=== PATIENT | female | born 1990 | race Caucasian/White ===

== ENCOUNTER 2023-10-22 08:16 | Day surgery (SDC) | payer OTHER, SELFPAY ==
[2023-10-15 12:03] VITALS: BMI 28.8
--- NOTE | 2023-10-22 | PATH_ITS ---
[facility] Accession Number: [id number] No. of containers..01 Tissue . 01 Material submitted: . inguinal area - RIGHT INGUINAL SOFT TISSUE MASS . 01 Diagnosis: SOFT TISSUE, RIGHT INGUINAL REGION, EXCISION: Mature adipose tissue, consistent with lipoma. MRV 10/25/2023 1421 Local . 01 Electronically signed: . Abi Henry MD, Pathologist NPI- [id number] . 01 Gross description: . Received in formalin, labeled with two identifiers and right inguinal soft tissue mass, is a partially encapsulated yellow lobulated soft tissue fragment measuring 3.6 x 3.4 x 1.2 cm. Inked blue and sectioned to reveal a yellow, soft, unremarkable cut surface with no cysts or lesions identified. Template Maker sections are submitted in cassette A1. ([id number]) /[facility] 10/23/2023 1656 Local . 01 Pathologist provided ICD-10: D17.9 . 01 CPT . 958693 Specimen Comment: A courtesy copy of this report has been sent to [facility] Performed at: [address] [address], [place], [place] [id number] MD Woo Davis MD Phone: [phone]
[2023-10-22] MEDS: LACTATED RINGERS 1,000 ML 42 ML IV (08:44)
[2023-10-22 08:47] VITALS: BP 102/69; PULSE 64; RESP 16; TEMP 36.2; O2SAT 99; BMI 28.7
--- NOTE | 2023-10-22 09:15 | PM.PREOP ---
Pre-operative Note Interval Note History & Physical reviewed/Exam performed by Physician: Yes Changes to H&P: No H&P completed within 30 days and has changed as indicated here:: 09/22/23 ASA Class (for procedural sedation): II
--- NOTE | 2023-10-22 09:29 | SUR.OPER ---
Lithotomy on padded OR bed, head on pillow, arms secured on padded arm boards at <90 degrees abduction. Legs secured in padded yellow fins stirrups.
[2023-10-22] MEDS: BUPIVACAINE 0.25% W/ EPI (PF) 10 ML VIAL 20 ML INJ (10:07)
--- NOTE | 2023-10-22 10:41 | PM.OP.1 ---
Operative Date/Time/Diagnoses Date of procedure: 10/22/23 Time of procedure: 10:41 Pre-op diagnosis: inguinal soft tissue mass vs labial cyst Post-op diagnosis: same Procedure & Clinicians Procedure: exam under anesthesia, wide local excision of R inguinal soft tissue mass Same procedure as scheduled: Yes Indications: symptomatic R inguinal soft tissue mass Surgeon: Bette Pete Corporate Security Manager: Junito Lackey Click Yes if Unassisted: No Anesthesia Type: General Operative Notes Findings: 5x7cm pedunculated R inguinal tissue mass without appreciable vascularity, contents thereof consistent with lipoma Closure Type: primary Specimen(s): other (soft tissue mass ) Estimated Blood Loss (mL): 5 Blood products transfused: none Procedure in detail: Pt was taken to the operating room, transferred to OR table and anesthesia was induced with placement of LMA.? Pt had her legs placed in Tomas stirrups and an exam under anesthesia was performed. The patient was prepped and draped in a sterile fashion.? A time out was performed.? The soft tissue mass was elevated at the stalk and marked in elliptical fashion along the base for planned area of excision. The surrounding dermis was superficially infiltrated with 5cc of 0.25% lidocaine with epinephrine. The skin of the apex of the mass was sharply incised using the #15 blade. The epidermis was grasped bilaterally using allis clamps and the underlying encapsulated soft tissue mass was sharply dissected away from the underlying tissue using metzenbaum scissors. The mass was excised at the base using bovie cautery, visual impression consistent with lipoma. The excess skin was trimmed to the level of the pre-marked incision. The subdermal layer of the incision was reapproximated using 3-0 vicryl. The skin of the incision was reapproximated in a subcuticular fashion using 4-0 monocryl followed by application of dermabond. Hemostasis was noted to be excellent. An additional 10cc of local anesthetic was injected superficially for further postoperative anesthesia. All counts were correct x2. The patient had her legs taken out of stirrups and was extubated and transferred to PACU in stable condition. Assistance of Dr. Lackey was indicated secondary to atypical procedure, need for additional assistance with intraoperative evaluation as well as intraoperative retraction. Complications: none Post-operative Condition: stable Disposition: PACU
[2023-10-22 10:43] VITALS: BP 107/75; PULSE 76; RESP 11; TEMP 36.1; O2SAT 100
[2023-10-22 10:47] VITALS: BP 110/72; PULSE 71; RESP 16; O2SAT 100
[2023-10-22 10:52] VITALS: BP 105/69; PULSE 81; RESP 12; O2SAT 100
[2023-10-22 10:57] VITALS: BP 104/66; PULSE 72; RESP 10; O2SAT 100
[2023-10-22 11:05] VITALS: BP 113/82; PULSE 68; RESP 12; O2SAT 100
== END 2023-10-22 11:35 | disposition home or self-care (01) ==
PROVIDERS: PCP Family Medicine; Referring Provider Obstetrics & Gynecology; Visit Provider Obstetrics & Gynecology
PROC: (CPT 27043; principal; 2023-10-22 09:45)
DX: D17.1 Benign lipomatous neoplasm of skin and subcutaneous tissue of trunk (principal); D17.39 Benign lipomatous neoplasm of skin and subcutaneous tissue of other sites
CPT/HCPCS: 27043; 11406; 12032; 81025; J1100; J2405; J2704